=== PATIENT | female | born 1950 | race Caucasian/White ===

== ENCOUNTER → 2020-12-11 | Outpatient (CLI) | payer MEDICARE, BC ==
[~2020-12-11] MED LIST: ALLEGRA ALLERG180 MG PO; ANTIVERT 25MG T25 MG PO; CALCIUM CITRAT1 EAC6 PO; CENTRUM SILVER1 EAC1 PO; FLEXERIL 10 MG10 MG PO; GAS-X125 MG PO; HYDROCHLOROTHIA25 MG PO; KLOR-CON 1010 MEQ PO; LOPRESSOR 25 MG25 MG PO; LOTENSIN TAB 1010 MG PO; PROTONIX 20 MG20 MG PO; SINGULAIR10 MG PO; SYNTHROID25 MCG PO; SYSTANE BALANCE10 ML OP; TUMS/TITRALAC500 MG PO; TYLENOL 325MG325 MG PO; VITAMIN D31000 UNIT PO; ZADITOR5 ML OP
== END ==
LOC: EXRD 13:52
DX: M79.604 Pain in right leg (principal); M79.605 Pain in left leg
CPT/HCPCS: 93925

== ENCOUNTER → 2021-12-27 | Outpatient (CLI) | payer MEDICARE, BC | LOC: KOH-I 08:36 | DX: M75.101 Unspecified rotator cuff tear or rupture of right shoulder, not specified as traumatic (principal); M19.011 Primary osteoarthritis, right shoulder | CPT/HCPCS: 73200 ==

== ENCOUNTER → 2022-02-11 | Outpatient (CLI) | payer MEDICARE, BC | LOC: ECHO 09:00 | DX: H93.A2 Pulsatile tinnitus, left ear (principal); I34.0 Nonrheumatic mitral (valve) insufficiency | CPT/HCPCS: ECHO; 93306; 93880 ==